=== PATIENT | male | born 1955 | race Hispanic/Latino ===

== ENCOUNTER 2019-10-06 11:19 | Emergency (ER) | payer MEDICARE, OTHER ==
[2019-10-06] MEDS ORDERED: INSULIN HUMULIN R 100 UNIT/ML 3ML ONE (11:45)
[2019-10-06 11:48] LABS: BASOPHILS % (AUTO) 0.3 % (0.0-5.0); HEMATOCRIT 47.8 % (36-48); LYMPHOCYTES % (AUTO) 2.4 % (21.0-51.0); MEAN CORPUSCULAR HGB CONC 34.1 g/dL (32.0-36.0); MEAN CORPUSCULAR VOLUME 93.7 fL (79-99); MONOCYTES % (AUTO) 4.3 % (3.0-13.0); NEUTROPHILS % (AUTO) 92.6 % (40.0-77.0); PLATELET COUNT (AUTO) 261 K/uL (130-400); RED CELL DISTRIBUTION WIDTH 12.2 % (11.0-15.5); WHITE BLOOD COUNT (AUTO) 15.2 K/uL (4.8-10.8)
[2019-10-06 12:01] LABS: INR 1.01 (0.85-1.15); PARTIAL THROMBOPLASTIN TIME 26.1 SEC (26.3-35.5); PROTHROMBIN TIME 10.6 SEC (9.6-11.6)
[2019-10-06 12:16] LABS: ABG OXYGEN SATURATION 48.3 % (95.0-99.0); BASE EXCESS,VENOUS BLOOD GAS -0.2 (-2.0-3.0); HCO3,VENOUS BLOOD GAS 24.7 (21.0-28.0); PCO2,VENOUS BLOOD GAS 41 (35-48); PH,VENOUS BLOOD GAS 7.397 (7.350-7.450)
[2019-10-06 12:16] LABS: ALBUMIN 3.8 g/dL (3.5-5.0); BILIRUBIN,DIRECT 0.2 mg/dL (0.0-0.3); BILIRUBIN,TOTAL 0.8 mg/dL (0.2-1.0); CREATININE 1.5 mg/dL (0.5-1.5); POTASSIUM 4.7 mmol/L (3.5-5.1); TOTAL PROTEIN, SERUM 7.9 g/dL (6.0-8.3)
[2019-10-06] MEDS ORDERED: SODIUM CHLORIDE 0.9% 1000ML 1,000 ML IV ONE (12:26)
[2019-10-06 12:35] LABS: B-TYPE NATRIURETIC PEPTIDE 163 pg/mL (0-100)
[2019-10-06 13:03] LABS: APPEARANCE,URINE Clear (CLEAR); BILIRUBIN,URINE Negative (NEGATIVE); COLOR,URINE Yellow (YELLOW); GLUCOSE, URINE (UA) >=1000 mg/dL (NEGATIVE); KETONES,URINE >=80 mg/dL (NEGATIVE); LEUKOCYTE ESTERASE ,URINE Negative (NEGATIVE); NITRATE,URINE Negative (NEGATIVE); OCCULT BLOOD,URINE Moderate (NEGATIVE); PROTEIN,URINE 300 mg/dL (NEGATIVE)
[2019-10-06 13:26] LABS: AMMONIA < 3 umol/L (11-32)
[2019-10-06 13:27] LABS: BACTERIA,URINE Few /HPF (None Seen); SQUAMOUS EPITHELIAL CELL,UR Rare /HPF (0-2)
[2019-10-06] MEDS ORDERED: IOHEXOL 350 MG/ML 100ML INFUS..BTL IV ONE (13:50)
[2019-10-06] MEDS ORDERED: LORAZEPAM 2 MG/ML 1 ML VIAL ONE (14:01)
[2019-10-06] MEDS ORDERED: ZOSYN 3.375GM+NS 50ML 50 ML IV ONE (15:28)
[2019-10-06] MEDS ORDERED: ACETAMINOPHEN 650 MG SUPPOSITORY RC ONE (18:49)
== END 2019-10-06 20:19 | disposition short-term general hospital (02) ==
LOC: EDSEX 11:19 → EDH 11:19
DX: S02.40EA Zygomatic fracture, right side, initial encounter for closed fracture (principal); R41.82 Altered mental status, unspecified; E11.65 Type 2 diabetes mellitus with hyperglycemia; I10 Essential (primary) hypertension; E78.00 Pure hypercholesterolemia, unspecified; Z86.73 Personal history of transient ischemic attack (TIA), and cerebral infarction without residual deficits; Z90.49 Acquired absence of other specified parts of digestive tract; W18.39XA Other fall on same level, initial encounter; Y93.89 Activity, other specified; Y92.89 Other specified places as the place of occurrence of the external cause; Y99.8 Other external cause status
CPT/HCPCS: 36415; 36600; 70450; 70496; 70498; 71045; 72125; 80048; 80076; 81001; 82010; 82140; 82550; 82803; 82948; 83605 ×2; 83735; 83880; 84484; 85025; 85610; 85730; 87040; 87088; 93005; 96361; 96365; 96366; 96375; 99291; J1815; J2060; J2543; J7030; Q9967